=== PATIENT | female | born 1985 ===

== ENCOUNTER 2016-08-21 07:36 | Inpatient (IN) | payer OTHER, MEDICAID ==
[2016-08-21] VITALS (40 sets, daily range): BP systolic 95–138; BP diastolic 55–79; PULSE 58–96; TEMP 97.5–98.7
[~2016-08-21] VITALS: Ht 167.6 cm; Wt 92.1 kg
[~2016-08-21 07:36] MED LIST: MACROBID100 MG PO; NO HOME MEDICATIONS; PHENERGAN 25 TA25 MG PO; PRENATAL VITAMI1 TA5 PO; VALTREX 50500 MG/TAB PO; ZANTAC 7575 MG PO
[2016-08-21 08:10] LABS: BASO % 0.3 % (0.0-2.0); EOS # 0.1 (0.0-0.7); EOS % 1.1 % (0-4.0); GRAN # 5.7 (1.4-6.5); GRAN % 65.2 % (42.2-75.2); HEMATOCRIT 37.9 % (37.0-47.0); HEMOGLOBIN 13.3 g/dl (12.5-16.0); LYMPH # 2.3 (1.2-3.4); LYMPH % 26.3 % (20.0-51.0); MEAN CELL VOLUME 93 fl (80.0-100.0); MEAN CORPUSCULAR HEMOGLOBIN 33 pg (27.0-31.0); MEAN CORPUSCULAR HGB CONC 35 g/dl (33.0-37.0); MEAN PLATELET VOLUME 11.6 fl (7.4-10.4); MONO # 0.5 (0.1-0.6); MONO % 6.2 % (1.7-9.3); PLATELET COUNT 193 K/mm3 (130-400); RED BLOOD COUNT 4.06 M/mm3 (4.10-5.30); WHITE BLOOD COUNT 8.8 K/mm3 (4.8-10.8)
[2016-08-21] MEDS ORDERED: MOTRIN 800800 MG/TAB PO (09:11)
[2016-08-21] MEDS ORDERED: PERCOCET 325 MG1 TA2 PO (09:11)
[2016-08-22 04:00] VITALS: BP 114/74; PULSE 56; TEMP 98.4
[2016-08-22 08:30] VITALS: BP 108/66; PULSE 71; TEMP 97.8
== END 2016-08-22 17:10 | disposition home or self-care (01) | DRG 774 ==
LOC: OB 07:36 → LDR 08:23 → OB 08:23
PROVIDERS: Obstetrics & Gynecology
PROC: 10E0XZZ Delivery of Products of Conception, External Approach (ICD-10-PCS; principal; 2016-08-21)
PROC: 3E033VJ Introduction of Other Hormone into Peripheral Vein, Percutaneous Approach (ICD-10-PCS; 2016-08-21)
PROC: 0HQ9XZZ Repair Perineum Skin, External Approach (ICD-10-PCS; 2016-08-21)
DX: O77.0 Labor and delivery complicated by meconium in amniotic fluid (principal); O98.512 Other viral diseases complicating pregnancy, second trimester; B00.9 Herpesviral infection, unspecified; O70.0 First degree perineal laceration during delivery; Z3A.39 39 weeks gestation of pregnancy; Z37.0 Single live birth
CPT/HCPCS: J2590; J7120